=== PATIENT | male | born 1980 | race Caucasian/White ===

== ENCOUNTER 2016-12-05 22:04 | Emergency (ER) | payer MEDICAID ==
[2016-12-05 22:12] VITALS: BP 135/90; TEMP 98.8; O2SAT 94
--- NOTE | 2016-12-05 22:17 | EDPHY ---
H & P Stated Complaint: c/o pain in R foot after jamming toe earlier today Time Seen by Provider: 12/05/16 22:15 HPI/ROS: HPI The patient presents with right foot pain for the last 2 days. He got a new pair of shoes and has been doing a lot of jogging lately. The pain has been gradual in onset and getting progressively worse. It is moderate in severity. He noticed today that he had a bruise of his right great toenail and his 2nd toenail had fallen off. His pain is not associated with any swelling of his feet or any rash. REVIEW OF SYSTEMS Constitutional: No fever, no chills. Eyes: No discharge. ENT: No sore throat. Cardiovascular: No chest pain, no palpitations. Respiratory: No cough, no shortness of breath. Gastrointestinal: No abdominal pain, no vomiting. Genitourinary: No hematuria. Musculoskeletal: No back pain. Skin: No rashes. Neurological: No headache. PMHx: Anxiety, PTSD, bipolar disorder PHYSICAL General Appearance: Alert, no distress Eyes: Pupils equal and round no pallor or injection ENT, Mouth: Mucous membranes moist Respiratory: Breathing comfortably Neurological: A&O, moves all extremities Skin: Warm and dry, no rashes Musculoskeletal: Neck is supple non tender Extremities: Right great toenail with ecchymoses, right 2nd toe nail is missing with blister of the distal toe Psychiatric: Patient is oriented X 3, there is no agitation Source: Patient Exam Limitations: No limitations - Medical/Surgical History Hx Asthma: No Hx Chronic Respiratory Disease: No Hx Diabetes: No Hx Cardiac Disease: No Hx Renal Disease: No Hx Cirrhosis: No Hx Alcoholism: No Hx HIV/AIDS: No Hx Splenectomy or Spleen Trauma: No Other PMH: anxiety, ptsd, depression, bipolar - Social History Smoking Status: Former smoker Constitutional: Initial Vital Signs Temperature (C) 37.1 C 12/05/16 22:08 Heart Rate 119 H 12/05/16 22:08 Respiratory Rate 16 12/05/16 22:08 Blood Pressure 135/90 H 12/05/16 22:08 O2 Sat (%) 94 12/05/16 22:08 O2 Delivery Mode Room Air Allergies/Adverse Reactions: Penicillins Allergy (Verified 12/05/16 22:12) Home Medications: Medication Instructions Recorded Neurontin 12/05/16 Seroquel 12/05/16 Wellbutrin Sr 12/05/16 Medical Decision Making Differential Diagnosis: This is a 35-year-old man who presents with foot pain after running with new shoes on for the last several days. He appears to have a toenail ecchymoses of his great toe and has lost the toenail of his 2nd toe. There is no subungual hematoma. There is no sign of infection. Have instructed him to find new shoes that are better fitting. He can use antibiotic ointment as needed on his toe. - Data Points Medications Given: Discontinued Medications Acetaminophen (Tylenol) 1,000 mg PO EDNOW ONE Stop: 12/05/16 22:37 Last Admin: 12/05/16 22:52 Dose: 1,000 mg Departure - Departure Disposition: Home, Routine, Self-Care Clinical Impression: Toenail bruise Condition: Good Instructions: Nail Avulsion (ED), Nail Removal (ED) Additional Instructions: Please look for a pair of shoes that are bigger. Your current shoes are hurting her toes. Make sure to wear clean socks and change them daily. You can soak your feet in warm soapy water if you need to. You can also use antibiotic ointment on your toe with the toenail that has fallen off. Referrals: [facility] [Outside] - As per Instructions
[2016-12-05] MEDS ORDERED: ACETAMINOPHEN 500 MG TAB PO ONE (22:36)
[2016-12-05 22:56] VITALS: PULSE 102; RESP 18
== END 2016-12-05 22:53 | disposition home or self-care (01) ==
DX: M79.81 Nontraumatic hematoma of soft tissue (principal); Z87.891 Personal history of nicotine dependence

== ENCOUNTER → 2017-01-08 | Outpatient (CLI) | payer MEDICAID | LOC: FLAB 09:07 | PROVIDERS: ATTEND Family Medicine | DX: Z11.1 Encounter for screening for respiratory tuberculosis (principal) ==

== ENCOUNTER 2017-03-01 09:39 | Emergency (ER) | payer MEDICAID ==
[2017-03-01 09:43] VITALS: BP 112/76; PULSE 75; RESP 16; TEMP 98.1; O2SAT 98
--- NOTE | 2017-03-01 10:16 | EDPHY ---
H & P Stated Complaint: R toe pain after he dropped vase on it yesterday;ambulatory HPI/ROS: CHIEF COMPLAINT: Toe pain, crush injury HISTORY OF PRESENT ILLNESS: Patient complains of right great toe pain that started yesterday. This started when he accidentally dropped vase on his toe at work. He said it was immediately painful but he attempted to work through the pain. Worse with any kind of palpation or movement. Radiates into the foot. There is swelling and bruising. No numbness or tingling. No laceration. No improvement of his symptoms overnight. No other associated complaints or modifying factors. PRIOR ORTHO INJURIES: None ESTABLISHED ORTHOPEDIST: None REVIEW OF SYSTEMS: Ten systems reviewed and are negative unless otherwise noted in the HPI EXAMINATION General Appearance: Alert, no distress Cardiovascular: Pulses normal throughout. Symmetric DP and PT pulses 2+ Brisk cap refill Neurological: A&O, sensory symmetric, strength symmetric Skin: Warm and dry, no rash. There is ecchymosis of the entire great toe with a subungual hematoma. Extremities: Tenderness of the right great toe. No tenderness of the midfoot or calcaneus. Range of motion intact. There is ecchymosis and sub ungual hematoma of the right great toe. Psychiatric: Mood and affect normal DIFFERENTIAL DIAGNOSES: Including but not limited to fracture, crush injury, contusion, subungual hematoma MDM: 10:00 a.m. Crush injury to right great toe with possible fracture of the phalanx as well as a subungual hematoma. Proceed with trephination of the toenail. 10:15 a.m. Tuft fracture of the right great toe. This is a closed fracture. He is neurovascular intact. I have trephinated the nail with excellent improvement of his symptoms. Discharged home with postop shoe, anti-inflammatories over-the- counter, short course of pain medication. Follow up with textile conservator a Orthopedics for definitive care. He is comfortable with this plan and discharged home stable condition. Procedure: Nail trephination Indication: Right great toe subungual hematoma Consent: Verbal Description: The nail the right great toe was prepped with chlorhexidine. The electric cautery was used to trephinated the nail without complication. There was excellent return of hematoma and serous fluid. Tolerated well without any pain. Patient elected to do this without any anesthesia. Immediate improvement in his symptoms post trephination. No complications. ED Precautions: Worsening pain. Erythema, edema, cyanosis, pallor, paresthesia or anesthesia. SUPERVISION: This patient was independently evaluated without direct examination by the attending physician. Case was discussed with attending physician. Source: Patient Exam Limitations: No limitations - Personal History Current Tetanus Diphtheria and Acellular Pertussis (TDAP): Yes - Medical/Surgical History Hx Asthma: No Hx Chronic Respiratory Disease: No Hx Diabetes: No Hx Cardiac Disease: No Hx Renal Disease: No Hx Cirrhosis: No Hx Alcoholism: No Hx HIV/AIDS: No Hx Splenectomy or Spleen Trauma: No Other PMH: anxiety, ptsd, depression, bipolar - Social History Smoking Status: Current every day smoker Constitutional: Initial Vital Signs Temperature (C) 98.1 F 03/01/17 09:40 Heart Rate 75 03/01/17 09:40 Respiratory Rate 16 03/01/17 09:40 Blood Pressure 112/76 03/01/17 09:40 O2 Sat (%) 98 03/01/17 09:40 O2 Delivery Mode Room Air Allergies/Adverse Reactions: Penicillins Allergy (Unknown, Verified 03/01/17 09:39) Home Medications: Medication Instructions Recorded Neurontin 12/05/16 Seroquel 12/05/16 Wellbutrin Sr 12/05/16 Hydrocodone/APAP 5/325 [[place] 1 - 2 tab PO Q4H PRN #10 tab 03/01/17 5/325 (*)] Medical Decision Making - Diagnostics Imaging Results: Imaging Impressions Toe X-Ray 03/01/17 09:43 Impression: Tuft fracture. Departure - Departure Disposition: Home, Routine, Self-Care Clinical Impression: Toe fracture, right Qualifiers: Encounter type: initial encounter Toe: great toe Fracture type: closed Phalanx : distal Fracture alignment: nondisplaced Qualified Code(s): S92.424A - Nondisplaced fracture of distal phalanx of right great toe, initial encounter for closed fracture Subungual hematoma of great toe of right foot Qualifiers: Encounter type: initial encounter Qualified Code(s): S90.211A - Contusion of right great toe with damage to nail, initial encounter Condition: Good Instructions: Subungual Hematoma (ED), Toe Fracture (ED) Additional Instructions: 1. Ice and elevate the extremity 2. Hvea-[id number]-[id number] anti-inflammatories as needed 3. Pain medication as needed as prescribed 4. Follow up with textile conservator or Orthopedics for definitive care Referrals: NONE *PRIMARY CARE P,. [Primary Care Provider] - As per Instructions Samy Rhodes MD [Medical Doctor] - As per Instructions Jamey Craft DPM [Doctor of Podiatric Medicine] - As per Instructions Stand Alone Forms: Work Comp Follow Up Prescriptions: Hydrocodone/APAP 5/325 [[place] 5/325 (*)] 1 - 2 tab PO Q4H PRN #10 tab PRN Reason: Pain, Moderate
== END 2017-03-01 10:42 | disposition home or self-care (01) ==
PROC: 0H9RXZZ Drainage of Toe Nail, External Approach (ICD-10-PCS; principal; 2017-03-01)
DX: S92.424A Nondisplaced fracture of distal phalanx of right great toe, initial encounter for closed fracture (principal); S90.211A Contusion of right great toe with damage to nail, initial encounter; F17.200 Nicotine dependence, unspecified, uncomplicated; W20.8XXA Other cause of strike by thrown, projected or falling object, initial encounter; Y92.69 Other specified industrial and construction area as the place of occurrence of the external cause; Y99.0 Civilian activity done for income or pay; Y93.89 Activity, other specified
CPT/HCPCS: L3260

== ENCOUNTER 2017-07-12 19:09 | Emergency (ER) | payer MEDICAID ==
--- NOTE | 2017-07-12 19:24 | EDPHY ---
H & P Stated Complaint: LSD 1 hour [employer]ING [employer], found by ems yelling at customers at grocery store Source: Patient Exam Limitations: No limitations - Personal History Current Tetanus/Diphtheria Vaccine: Unsure - Medical/Surgical History Hx Asthma: No Hx Chronic Respiratory Disease: No Hx Diabetes: No Hx Cardiac Disease: No Hx Renal Disease: No Hx Cirrhosis: No Hx Alcoholism: No Hx HIV/AIDS: No Hx Splenectomy or Spleen Trauma: No Other PMH: anxiety, ptsd, depression, bipolar - Social History Smoking Status: Current every day smoker Time Seen by Provider: 07/12/17 19:19 HPI/ROS: CHIEF COMPLAINT: Altered mental status after taking acid HISTORY OF PRESENT ILLNESS: The patient is brought in by paramedics with altered mental status after taking acid. The patient reportedly was found in a grocery store yelling and customers. The patient reports he took acid for the first time today. He denies coingestion. The patient denies suicidal ideation. The patient does have a history of PTSD, anxiety, depression and bipolar mood disorder. The patient reports he takes Seroquel, Wellbutrin and Neurontin for these conditions. REVIEW OF SYSTEMS: A comprehensive 10 point review of systems is otherwise negative aside from elements mentioned in the history of present illness. (Tru Franklin) - Physical Exam Exam: General Appearance: Alert, agitated, actively hallucinating Eyes: Pupils equal and round no pallor or injection ENT, Mouth: Mucous membranes moist Respiratory: There are no retractions, lungs are clear to auscultation Cardiovascular: Regular rate and rhythm Gastrointestinal: Abdomen is soft and nontender, no masses, bowel sounds normal Neurological: A&O, normal motor function, normal sensory exam, normal cranial nerves Skin: Warm and dry, no rashes Musculoskeletal: Neck is supple nontender Extremities: symmetrical, full range of motion Psychiatric: Agitated and hallucinating from using hallucinogen (Tru Franklin) Constitutional: Initial Vital Signs Temperature (C) 36.9 C 07/12/17 19:12 Heart Rate 90 07/12/17 19:12 Respiratory Rate 16 07/12/17 19:12 Blood Pressure 127/85 H 07/12/17 19:12 O2 Sat (%) 100 07/12/17 19:12 O2 Delivery Mode Room Air Allergies/Adverse Reactions: Penicillins Allergy (Unknown, Verified 03/01/17 09:39) Home Medications: Medication Instructions Recorded Neurontin 12/05/16 Seroquel 12/05/16 Wellbutrin Sr 12/05/16 Hydrocodone/APAP 325 [[place] 1 - 2 tab PO Q4H PRN #10 tab 03/01/17 5/325 (*)] Medical Decision Making ED Course/Re-evaluation: The patient presents to the ED with altered mental status and hallucinations after taking LSD. The patient was given 10 mg of oral Zyprexa at 7:40 p.m.. Patient was re-evaluated at 8:00 p.m.. He is feeling more common less agitated. He is now resting comfortably in the room. Patient will be turned over to Dr. Mandel at 8:30 p.m. pending further metabolism of his LSD. I anticipate the patient he will be able to be discharged from the emergency department. (Tru Franklin) 830: Patient is signed out at change of shift. The patient is doing well with no complaints. 940: The patient is doing well. No complaints. 1000: Patient is stable. The patient is signed out to Dr. Zhou at change of shift. (Jerica Mandel) 6:00 a.m.- The patient remained stable throughout the night and slept for most of it. He will be discharged at this time. He does not have any complaints. (Citlali Zhou) Differential Diagnosis: Differential diagnosis considered includes overdose, intoxication, medication side effect, serotonin syndrome (Tru Franklin) - Data Points Medications Given: Discontinued Medications Olanzapine (Olanzapine) 10 mg PO ONCE ONE Stop: 07/12/17 19:34 Last Admin: 07/12/17 19:35 Dose: 10 mg Departure - Departure Disposition: Home, Routine, Self-Care Clinical Impression: LSD reaction Condition: Good Instructions: Polysubstance Abuse (ED) Additional Instructions: Please return to the emergency department if your worse in any way. Referrals: [facility],. [Clinic] - As per Instructions
[2017-07-12] MEDS ORDERED: OLANZapine DISINTEGR 10 MG TAB ONE (19:31)
[2017-07-12] MEDS ORDERED: OLANZapine 5 MG TAB PO ONE (19:33)
[2017-07-13 06:16] VITALS: BP 110/71; PULSE 73; RESP 16; TEMP 98.1; O2SAT 97
== END 2017-07-13 06:16 | disposition home or self-care (01) ==
LOC: EDUNIT#
DX: F16.10 Hallucinogen abuse, uncomplicated (principal); F17.200 Nicotine dependence, unspecified, uncomplicated

== ENCOUNTER 2017-07-27 22:57 | Emergency (ER) | payer MEDICAID ==
[2017-07-27 23:01] VITALS: TEMP 97.9
[2017-07-27] MEDS ORDERED: NS 1,000 ML IV ONE ×2 (23:08)
--- NOTE | 2017-07-27 23:08 | EDPHY ---
H & P Stated Complaint: Diarrhea since last night HPI/ROS: HPI CHIEF COMPLAINT: Diarrhea HISTORY OF PRESENT ILLNESS: Patient very pleasant 36-year-old male, homeless staying at a local senior care he states for the past 24 hr he has had watery diarrhea. No blood. Denies any significant abdominal pain. Denies fever. Denies vomiting. Denies chest pain or shortness of breath. Does feel dehydrated. Past Medical History: No significant medical history Past Surgical History: No significant surgical history Social History: Homeless, denies drugs alcohol tobacco. Family History: Noncontributory ROS REVIEW OF SYSTEMS: A comprehensive 10 point review of systems is otherwise negative aside from elements mentioned in the history of present illness. Exam Constitutional appears well nontoxic triage nursing summary reviewed, vital signs reviewed, awake/alert. Eyes normal conjunctivae and sclera, EOMI, PERRLA. HENT normal inspection, atraumatic, moist mucus membranes, no epistaxis, neck supple/ no meningismus, no raccoon eyes. Respiratory clear to auscultation bilaterally, normal breath sounds, no respiratory distress, no wheezing. Cardiovascular rate normal, regular rhythm, no murmur, no edema, distal pulses normal. Gastrointestinal soft, non-tender, no rebound, no guarding, normal bowel sounds, no distension, no pulsatile mass. Genitourinary no CVA tenderness. Musculoskeletal no midline vertebral tenderness, full range of motion, no calf swelling, no tenderness of extremities, no meningismus, good pulses, neurovascularly intact. Skin pink, warm, & dry, no rash, skin atraumatic. Neurologic awake, alert and oriented x 3, AAOx3, moves all 4 extremities equally, motor intact, sensory intact, CN II-XII intact, normal cerebellar, normal vision, normal speech. Psychiatric normal mood/affect. Heme/Lymph/Immune no lymphadenopathy. Differential Diagnosis: Includes but is not limited to in a particular order acute dehydration, diarrheal illness, electrolyte disturbance, Noro virus, enteritis Medical Decision Making: Plan for this patient IV establishment IV fluid bolus , check basic blood work, GI pathogen panel and re-evaluate. Re-evaluation: 235: Patient's blood work is reviewed. Unremarkable normal electrolytes. No high white count. Abdomen remained soft nontender. He has not had any diarrhea here or vomiting. He has received IV fluid and feeling better. Return precautions discussed with the patient. He understands return emergency room if develops worsening abdominal pain fever or vomiting. Source: Patient - Personal History Current Tetanus/Diphtheria Vaccine: Yes Current Tetanus Diphtheria and Acellular Pertussis (TDAP): Yes - Medical/Surgical History Hx Asthma: No Hx Chronic Respiratory Disease: No Hx Diabetes: No Hx Cardiac Disease: No Hx Renal Disease: No Hx Cirrhosis: No Hx Alcoholism: No Hx HIV/AIDS: No Hx Splenectomy or Spleen Trauma: No Other PMH: anxiety, ptsd, depression, bipolar - Social History Smoking Status: Current every day smoker Constitutional: Initial Vital Signs Temperature (C) 36.6 C 07/27/17 22:59 Heart Rate 88 07/27/17 22:59 Respiratory Rate 16 07/27/17 22:59 Blood Pressure 133/86 H 07/27/17 22:59 O2 Sat (%) 95 07/27/17 22:59 O2 Delivery Mode Room Air Allergies/Adverse Reactions: Penicillins Allergy (Unknown, Verified 07/27/17 23:01) Home Medications: Medication Instructions Recorded Neurontin 12/05/16 Seroquel 12/05/16 Medical Decision Making - Data Points Laboratory Results: Laboratory Results 07/27/17 23:30 07/27/17 23:30 07/27/17 07/27/17 23:30 23:30 WBC 8.70 10^3/uL 10^3/uL (3.80-9.50) RBC 4.85 10^6/uL 10^6/uL (4.40-6.38) Hgb 15.3 g/dL g/dL (13.7-17.5) Hct 44.5 % % (40.0-51.0) MCV 91.8 fL fL (81.5-99.8) MCH 31.5 pg pg (27.9-34.1) MCHC 34.4 g/dL g/dL (32.4-36.7) RDW 12.5 % % (11.5-15.2) Plt Count 301 10^3/uL 10^3/uL (150-400) MPV 9.4 fL fL (8.7-11.7) Neut % (Auto) 64.1 % % (39.3-74.2) Lymph % (Auto) 26.2 % % (15.0-45.0) [place] % (Auto) 7.9 % % (4.5-13.0) Eos % (Auto) 1.1 % % (0.6-7.6) Baso % (Auto) 0.5 % % (0.3-1.7) Nucleat RBC Rel Count 0.0 % % (0.0-0.2) Absolute Neuts (auto) 5.57 10^3/uL 10^3/uL (1.70-6.50) Absolute Lymphs (auto) 2.28 10^3/uL 10^3/uL (1.00-3.00) Absolute Monos (auto) 0.69 10^3/uL 10^3/uL (0.30-0.80) Absolute Eos (auto) 0.10 10^3/uL 10^3/uL (0.03-0.40) Absolute Basos (auto) 0.04 10^3/uL 10^3/uL (0.02-0.10) Absolute Nucleated RBC 0.00 10^3/uL 10^3/uL (0-0.01) Immature Gran % 0.2 % % (0.0-1.1) Immature Gran # 0.02 10^3/uL 10^3/uL (0.00-0.10) Sodium 143 mEq/L mEq/L (134-144) Potassium 4.0 mEq/L mEq/L (3.5-5.2) Chloride 105 mEq/L mEq/L (97-110) Carbon Dioxide 23 mEq/l mEq/l (22-31) Anion Gap 15 mEq/L mEq/L (8-16) BUN 15 mg/dL mg/dL (7-23) Creatinine 0.9 mg/dL mg/dL (0.7-1.3) Estimated GFR > 60 Glucose 86 mg/dL mg/dL (70-100) Calcium 9.7 mg/dL mg/dL (8.5-10.4) Total Bilirubin 0.9 mg/dL mg/dL (0.1-1.4) Conjugated Bilirubin 0.3 mg/dL mg/dL (0.0-0.5) Unconjugated Bilirubin 0.6 mg/dL mg/dL (0.0-1.1) AST 24 IU/L IU/L (17-59) ALT 44 IU/L IU/L (21-72) Alkaline Phosphatase 111 IU/L IU/L (38-126) Total Protein 7.5 g/dL g/dL (6.3-8.2) Albumin 4.5 g/dL g/dL (3.5-5.0) Lipase 158 IU/L IU/L (23-300) Medications Given: Discontinued Medications Sodium Chloride (Ns) 1,000 mls @ 0 mls/hr IV EDNOW ONE; Wide Open PRN Reason: Protocol Stop: 07/27/17 23:09 Last Admin: 07/27/17 23:37 Dose: 1,000 mls Sodium Chloride (Ns) 1,000 mls @ 0 mls/hr IV EDNOW ONE; Wide Open PRN Reason: Protocol Stop: 07/27/17 23:09 Last Admin: 07/27/17 23:38 Dose: 1,000 mls Departure - Departure Disposition: Home, Routine, Self-Care Clinical Impression: Diarrhea Qualifiers: Diarrhea type: unspecified type Qualified Code(s): R19.7 - Diarrhea, unspecified Condition: Good Instructions: Acute Diarrhea (ED) Additional Instructions: 1. [place] diet for next 24-48 hours. 2. Return emergency room if develops worsening symptoms questions or concerns for Referrals: NONE *PRIMARY CARE P,. [Primary Care Provider] - As per Instructions
[2017-07-27 23:34] LABS: PLATELET COUNT 301 10^3/uL (150-400)
[2017-07-28 00:14] VITALS: BP 133/92; PULSE 85; RESP 18; O2SAT 99
== END 2017-07-28 00:14 | disposition home or self-care (01) ==
DX: R19.7 Diarrhea, unspecified (principal); F17.200 Nicotine dependence, unspecified, uncomplicated; E86.9 Volume depletion, unspecified

== ENCOUNTER 2017-09-02 14:27 | Emergency (ER) | payer MEDICAID ==
[2017-09-02 14:36] VITALS: BP 114/74; PULSE 83; RESP 16; TEMP 98.6; O2SAT 97
--- NOTE | 2017-09-02 14:43 | EDPHY ---
H & P Stated Complaint: congestion, n/v/d Time Seen by Provider: 09/02/17 14:42 HPI/ROS: HPI: This is a 36-year-old male who presents with Chief Complaint: congestion, n/v/d Location: Chest, sinus Quality: Congestion Duration: 2 weeks Signs and Symptoms: no fever, + nausea, + vomiting, no hematemesis, no blood in stool, no abdominal bloating, + diarrhea, no back pain, no urinary symptoms, no testicular/groin pain, no indigestion, no chest pain, no shortness of breath Timing: Improving Severity: Mild Context: Patient has no PCP presents with complaints of 2 weeks ago having some nausea, vomiting, diarrhea x3 days that resolved on its own. Now presents with sinus and chest congestion for the last 12 days. Patient is a tobacco user. History of lung disease. Denies shortness of breath/wheezing/fever/ palpitation/chest pain/lower extremity edema. Eating and drinking normally. Modifying Factors: None Comment: ROS: see HPI Constitutional: No fever, no chills, no weight loss Eyes: No blurred vision Respiratory: No shortness of breath, no cough Cardiovascular: No chest pain, no palpitations Gastrointestinal: No nausea, no vomiting, no diarrhea, no hematemesis, no blood in stool Genitourinary: No dysuria, no blood in urine Extremities: No myalgias, no edema Neurologic: No weakness, no numbness Skin: No rashes, no petechiae Hematologic: No bruising, no bleeding MEDICAL/SURGICAL/SOCIAL HISTORY: Medical history: anxiety, PTSD, depression, bipolar Surgical history: Denies Social history: Engaged CONSTITUTIONAL: Well-appearing, adult white male, awake and alert, no obvious distress HEENT: Atraumatic and normocephalic, PERRL, EOMI. Tympanic membranes clear. Nares patent with mild mucosal edema; green nasal discharge noted. Mild maxillary bilateral sinus tenderness. Oropharynx clear, no exudate and moist pink mucosa. Airway patent. No lymphadenopathy. No meningismus. Cardiovascular: Normal S1/S2, regular rate, regular rhythm, without murmur rub or gallop. PULMONARY/CHEST: Symmetrical and nontender. Clear to auscultation bilaterally. Good air movement. No accessory muscle usage. ABDOMEN: Soft, nondistended, nontender, no rebound, no guarding, no peritoneal signs, no masses or organomegaly. No CVAT. EXTREMITIES: 2/2 pulses, strength 5/5, no deformities, no clubbing, no cyanosis or edema. NEUROLOGICAL: no focal neuro deficits. GCS 15. SKIN: Warm and dry, no erythema. Tattoos covering entire torso and upper and lower extremities. no rash. Good capillary refill. Source: Patient, Family (fiance) Exam Limitations: No limitations - Personal History Current Tetanus/Diphtheria Vaccine: Unsure Current Tetanus Diphtheria and Acellular Pertussis (TDAP): Unsure - Medical/Surgical History Hx Asthma: No Hx Chronic Respiratory Disease: No Hx Diabetes: No Hx Cardiac Disease: No Hx Renal Disease: No Hx Cirrhosis: No Hx Alcoholism: No Hx HIV/AIDS: No Hx Splenectomy or Spleen Trauma: No Other PMH: anxiety, ptsd, depression, bipolar - Social History Smoking Status: Current every day smoker Constitutional: Initial Vital Signs Temperature (C) 37 C 09/02/17 14:34 Heart Rate 83 09/02/17 14:34 Respiratory Rate 16 09/02/17 14:34 Blood Pressure 114/74 09/02/17 14:34 O2 Sat (%) 97 09/02/17 14:34 O2 Delivery Mode Room Air Allergies/Adverse Reactions: Penicillins Allergy (Unknown, Verified 07/27/17 23:01) Home Medications: Medication Instructions Recorded AZITHROMYCIN [Z-PACK] 250 mg PO DAILY #6 tab 09/02/17 Benzonatate [Tessalon Pearles (RX)] 100 mg PO Q4 PRN #15 cap 09/02/17 Medical Decision Making ED Course/Re-evaluation: Vital signs reviewed and no systemic signs. Symptoms greater than 10 days and tobacco user with no lung disease Will treat with antibiotics and antitussives. Did not give albuterol inhaler as no wheezing/bronchospasm. Not a Tamiflu candidate so will not test. This patient was seen under the supervision of my secondary supervising physician. I evaluated care for this patient independently. Differential Diagnosis: Differential diagnosis includes but is not limited to sinusitis, bronchitis, upper respiratory infection, pneumonia. Departure - Departure Disposition: Home, Routine, Self-Care Clinical Impression: Bronchitis, Tobacco use disorder Sinusitis Qualifiers: Sinusitis location: maxillary Chronicity: acute Recurrence: non-recurrent Qualified Code(s): J01.00 - Acute maxillary sinusitis, unspecified Condition: Good Instructions: Acute Bronchitis (ED) Additional Instructions: Please refrain from smoking cigarettes and entertain the thought to quit altogether. Consume a minimum of 8-10 glasses of water or electrolyte fluid replacement drinks that include Gatorade, Powerade, Pedialyte. Take [id number] Mucinex every 6 hours as needed for congestion. Take Azithromycin x 5 days as directed. Use Tessalon Perles every 4 hr as needed for cough. This patient was seen under the supervision of my secondary supervising physician. I evaluated care for this patient independently. Referrals: [facility],. [Clinic] - As per Instructions Prescriptions: AZITHROMYCIN [Z-PACK] 250 mg PO DAILY #6 tab Benzonatate [Tessalon Pearles (RX)] 100 mg PO Q4 PRN #15 cap PRN Reason: Cough, Moderate
== END 2017-09-02 15:04 | disposition home or self-care (01) ==
DX: J20.9 Acute bronchitis, unspecified (principal); J01.00 Acute maxillary sinusitis, unspecified; F17.200 Nicotine dependence, unspecified, uncomplicated

== ENCOUNTER 2017-10-20 13:38 | Emergency (ER) | payer MEDICAID ==
--- NOTE | 2017-10-20 13:40 | EDPHY ---
H & P Time Seen by Provider: 10/20/17 13:40 - Medical/Surgical History Hx Asthma: No Hx Chronic Respiratory Disease: No Hx Diabetes: No Hx Cardiac Disease: No Hx Renal Disease: No Hx Cirrhosis: No Hx Alcoholism: No Hx HIV/AIDS: No Hx Splenectomy or Spleen Trauma: No Other PMH: anxiety, ptsd, depression, bipolar - Social History Smoking Status: Current every day smoker Allergies/Adverse Reactions: Penicillins Allergy (Unknown, Verified 07/27/17 23:01) Home Medications: Medication Instructions Recorded AZITHROMYCIN [Z-PACK] 250 mg PO DAILY #6 tab 09/02/17 Benzonatate [Tessalon Pearles (RX)] 100 mg PO Q4 PRN #15 cap 09/02/17 Medical Decision Making ED Course/Re-evaluation: CHIEF COMPLAINT: Alcohol intoxication. HISTORY OF PRESENT ILLNESS: The patient is a chronic alcoholic living on the [address]. Patient drinks on a daily basis and obtains whatever alcohol is available. Patient was found by bystanders who called EMS system. Patient has had multiple ER visits over the last several years for the same complaint. Patient denies any injuries denies loss of consciousness denies any recent trauma. Patient denies co-ingestion. Patient denies suicidal or homicidal behavior. REVIEW OF SYSTEMS: A 10 point review of systems was performed and is negative with the exception of the elements mentioned in the history of present illness. PHYSICAL EXAM: General Appearance: Alert, well hydrated, appropriate, and non-toxic appearing. Head: Atraumatic without scalp tenderness or obvious injury Eyes: Pupils equal, round, reactive to light and accommodation, EOMI, no trauma , no injection. Ears: Clear bilaterally, no perforation, normal landmarks Nose: Atraumatic, no rhinorrhea, clear. Throat: There is no erythema or exudates, no lesions, normal tonsils, mucus membranes moist. Neck: Supple, 2+ carotid upstroke, nontender, no lymphadenopathy. Respiratory: No retractions, no distress, no wheezes, and no accessory muscle use. Lungs are clear to auscultation bilaterally. Cardiovascular: Regular rate and rhythm, no murmurs, rubs, or gallops. Bilateral carotid, radial, dorsalis pedis, and posterior tibial pulses intact. Good capillary refill all extremities. Gastrointestinal: Abdomen is soft, nontender, non-distended, no masses, no rebound, no guarding, no peritoneal signs. Musculoskeletal: Normal active ROM of all extremities, atraumatic. Neurological: Alert, appropriate, and interactive. The patient has normal DTRs and non-focal cranial nerves, motor, sensory, and cerebellar exam. Skin: No rashes, good turgor, no nodules on palpation. PAST MEDICAL HISTORY: Chronic alcohol and marijuana abuse PAST SURGICAL HISTORY: Noncontributory SOCIAL HISTORY: Patient not forthright with answering questions. He obviously drinks and smokes marijuana, unclear if he has a job or significant other. DIFFERENTIAL DIAGNOSIS: The differential diagnosis for the patient's altered mental status included but was not limited to hypoglycemia, infectious process, electrolyte abnormality, head injury, neurologic process, anemia, cardiac process, and intoxicants. MEDICAL DECISION MAKING: I serially examined this patient since the patient's arrival here in the emergency department. The patient continues to become more and more sober with each examination. I serially questioned the patient and the patient's story given initially has not changed. The patient still denies any trauma, any head injury, and any illicit drug use. At this point, the patient is walking the department freely and is clinically sober. We're discharging the patient to the [facility] in stable condition. Departure - Departure Disposition: Home, Routine, Self-Care Clinical Impression: Polysubstance abuse Alcoholic intoxication Qualifiers: Complication of substance-induced condition: uncomplicated Qualified Code(s): F10.920 - Alcohol use, unspecified with intoxication, uncomplicated Condition: Good Instructions: Abuse of Alcohol (ED) Referrals: Patient,NotPresent [Primary Care Provider] - As per Instructions
[2017-10-20 15:25] VITALS: BP 111/63; PULSE 92; RESP 16; TEMP 97.9; O2SAT 94
== END 2017-10-20 15:04 | disposition home or self-care (01) ==
LOC: EDUNIT#
DX: F10.920 Alcohol use, unspecified with intoxication, uncomplicated (principal); F19.10 Other psychoactive substance abuse, uncomplicated; F17.200 Nicotine dependence, unspecified, uncomplicated

== ENCOUNTER 2017-10-23 22:32 | Emergency (ER) | payer MEDICAID ==
--- NOTE | 2017-10-24 00:11 | EDPHY ---
H & P Stated Complaint: fall, head laceration Time Seen by Provider: 10/23/17 22:45 HPI/ROS: Chief complaint: Fall with head injury History of present illness: This is a 36-year-old male who presents to the emergency department reporting a fall with a head injury. He states he tripped over a rock and struck the top of his head. He was drinking at that time. However he states he is now sober. He reports a cut to the top of his head. He did not lose consciousness. He has a mild headache. He denies pain or trauma to other parts of the body including the neck, back, chest, abdomen, pelvis or extremities. No other neurologic symptoms such as paresthesias, weakness or paralysis or bowel or bladder dysfunction. His tetanus is up-to- date. Review of systems: A 10 point review of systems was obtained and other than described above was negative - Personal History Current Tetanus/Diphtheria Vaccine: Yes Current Tetanus Diphtheria and Acellular Pertussis (TDAP): Yes - Medical/Surgical History Hx Asthma: No Hx Chronic Respiratory Disease: No Hx Diabetes: No Hx Cardiac Disease: No Hx Renal Disease: No Hx Cirrhosis: No Hx Alcoholism: No Hx HIV/AIDS: No Hx Splenectomy or Spleen Trauma: No Other PMH: anxiety, ptsd, depression, bipolar - Social History Smoking Status: Current every day smoker - Physical Exam Exam: General Appearance: Alert, nontoxic, easily conversant Eyes: PERRLA. Respiratory: Lungs clear to auscultation bilaterally. Cardiac: Regular rate and rhythm. Gastrointestinal: Bowel sounds normal. Abdomen is soft, nondistended, nontender. Neurological: Alert and oriented x4. Cranial nerves 2-12 grossly intact. Strength and sensation intact and symmetrical. Skin: 1 cm laceration to the superior aspect of the scalp. Musculoskeletal: Head is nontender. The spine is nontender. Chest wall is intact palpation. Patient moving all extremities without difficulty. Constitutional: Initial Vital Signs Temperature (C) 36.9 C 10/23/17 22:38 Heart Rate 89 10/23/17 22:38 Respiratory Rate 16 10/23/17 22:38 Blood Pressure 112/65 10/23/17 22:38 O2 Sat (%) 96 10/23/17 22:38 O2 Delivery Mode Room Air Allergies/Adverse Reactions: Penicillins Allergy (Unknown, Verified 07/27/17 23:01) Home Medications: Medication Instructions Recorded AZITHROMYCIN [Z-PACK] 250 mg PO DAILY #6 tab 09/02/17 Benzonatate [Tessalon Pearles (RX)] 100 mg PO Q4 PRN #15 cap 09/02/17 Medical Decision Making - Diagnostics Imaging Results: Imaging Impressions Cervical Spine CT 10/23/17 23:01 Impression: 1. No definite fracture. 2. If there is persistent pain or neurological deficit, recommend MR cervical spine and consider flexion and extension views, if clinically indicated. Findings and recommendations discussed with Emergency Department physician, VIKTOR Tian at 23:34 hour, 10/23/2017. Final report concurs with initial preliminary interpretation. Head CT 10/23/17 23:01 Impression: 1. Normal CT brain without contrast. 2. No evidence of skull fracture or epidural/subdural hematoma. Findings and recommendations discussed with Emergency Department physician, VIKTOR Tian at 23:33 hour, 10/23/2017. Final report concurs with initial preliminary interpretation. Imaging: Discussed imaging studies w/ orthopedically impaired teacher Radiologist ED Course/Re-evaluation: Patient seen under the supervision of my secondary supervising physician Dr. Ho Odom. Patient presents to the emergency department after tripping and falling and injuring his head. He has been intoxicated. CT scans are negative. By history and physical exam no evidence of further trauma. Laceration was cleaned and repaired. At discharge he is clinically sober. Home care is discussed. He is asked to follow up with a primary care doctor for recheck. Return precautions are given. Differential Diagnosis: Included but not limited to soft tissue injury, bony injury, concussion, intracranial bleed, spinal cord injury Departure - Departure Disposition: Home, Routine, Self-Care Clinical Impression: Head injury Qualifiers: Encounter type: initial encounter Qualified Code(s): S09.90XA - Unspecified injury of head, initial encounter Scalp laceration Qualifiers: Encounter type: initial encounter Qualified Code(s): S01.01XA - Laceration without foreign body of scalp, initial encounter Condition: Good Instructions: Laceration (ED), Head Injury (ED), Staple Care (ED) Additional Instructions: Follow-up with a primary care doctor for recheck [place] are to be removed in 7 days, you can return to this emergency room for removal If symptoms worsen or new symptoms develop return to the emergency room for recheck Referrals: NONE *PRIMARY CARE P,. [Primary Care Provider] - As per Instructions [facility],. [Clinic] - As per Instructions
[2017-10-24 00:28] VITALS: BP 128/70
== END 2017-10-24 00:27 | disposition home or self-care (01) ==
PROC: 0HQ0XZZ Repair Scalp Skin, External Approach (ICD-10-PCS; principal; 2017-10-23)
DX: S01.01XA Laceration without foreign body of scalp, initial encounter (principal); F17.200 Nicotine dependence, unspecified, uncomplicated; W01.198A Fall on same level from slipping, tripping and stumbling with subsequent striking against other object, initial encounter

== ENCOUNTER 2018-06-21 20:09 | Emergency (ER) | payer MEDICAID ==
[2018-06-21] MEDS ORDERED: FAMOTIDINE 20 MG/NACL 50 ML IV ONE (20:17)
[2018-06-21] MEDS ORDERED: ONDANSETRON 4 MG/2 ML VIAL IVP ONE (20:17)
[2018-06-21] MEDS ORDERED: NS 1,000 ML IV ONE (20:17)
[2018-06-21 20:26] LABS: PLATELET COUNT 405 10^3/uL (150-400)
--- NOTE | 2018-06-21 20:32 | EDPHY ---
H & P Time Seen by Provider: 06/21/18 20:15 HPI/ROS: HPI Nausea vomiting and diarrhea. 37-year-old male. Homeless. History of alcohol abuse. Presents by ambulance with complaint of nausea, vomiting and diarrhea, ongoing for the last 3-4 days. He describes having associated crampy abdominal discomfort which comes on intermittently. He reports multiple episodes of watery diarrhea and nonbilious , nonbloody vomiting. No bloody or melenic stool. He was just [facility] from [facility] this morning. He is currently on the streets. ROS: Constitutional: No fever, no chills. No weakness. Eyes: No discharge. No changes in vision. ENT: No sore throat. No nasal congestion or rhinorrhea. Respiratory: No cough. No shortness of breath. Cardiac: No chest pain, no palpitations. Gastrointestinal: As above. Genitourinary: No hematuria. No dysuria or increased frequency with urination. Musculoskeletal: No back pain. No neck pain. No myalgias or arthralgias. Skin: No rashes. Neurological: No headache. No focal weakness or altered sensation. Past medical history: Anxiety, PTSD, depression, heroin abuse, alcohol abuse. Social history: As above. Smoker. Physical Exam: General Appearance: Alert, no distress. This patient is responding to questions appropriately and in full sentences. This patient appears well- hydrated and well-nourished. Eyes: Pupils equal and round no pallor or injection. No lid edema, erythema or injection. Respiratory: There are no retractions, lungs are clear to auscultation with good air movement bilaterally. Cardiovascular: Regular rate and rhythm. No murmur. Gastrointestinal: Abdomen is soft and nontender, no masses, bowel sounds normal. No focal tenderness at McBurney's point. No Zhao sign. Neurological: Motor sensory function is grossly intact. Cranial nerves are normal. Gait is normal. Skin: Warm and dry, no rashes. Musculoskeletal: Neck is supple and nontender. Extremities are symmetrical. All joints range without pain or impingement. Psychiatric: No agitation. No depression. Database: EKG: Imaging: Procedures: Emergency department course: Triage vital signs reviewed and are normal. An IV was placed per EMS. Patient was started on IV normal saline with 1-2 L to be given over the next 1-2 hours while in the emergency department. He was given 4 mg of IV Zofran and 20 mg of IV Pepcid. 9:30 p.m., the patient has had 2 L of IV normal saline. He is feeling better. He is tolerating oral fluids at this time. Repeat abdominal exam is soft, nontender nondistended. He feels comfortable being discharged. Follow-up and return to emergency department precautions reviewed with him. All of his questions were answered. He was discharged from the emergency department in good condition. Differential Diagnosis: The differential diagnosis on this patient includes but is not limited to food borne illness, viral gastroenteritis. Appendicitis, cholecystitis, bowel obstruction, other acute surgical etiology unlikely. This represents a partial list of diagnoses considered. These considerations are based on history, physical exam, past history, reassessment and diagnostic testing. Smoking Status: Current every day smoker Constitutional: Initial Vital Signs Temperature (C) 37.3 C 06/21/18 20:10 Heart Rate 80 06/21/18 20:10 Respiratory Rate 19 06/21/18 20:10 Blood Pressure 128/89 H 06/21/18 20:10 O2 Sat (%) 96 06/21/18 20:10 O2 Delivery Mode Room Air Allergies/Adverse Reactions: Penicillins Allergy (Unknown, Verified 06/21/18 20:18) Home Medications: Medication Instructions Recorded AZITHROMYCIN [Z-PACK] 250 mg PO DAILY #6 tab 09/02/17 Benzonatate [Tessalon Pearles (RX)] 100 mg PO Q4 PRN #15 cap 09/02/17 Medical Decision Making - Data Points Laboratory Results: 06/21/18 06/21/18 20:12 20:12 WBC Pending RBC Pending Hgb Pending Hct Pending MCV Pending MCH Pending MCHC Pending RDW Pending Plt Count Pending MPV Pending Neut % (Auto) Pending Lymph % (Auto) Pending Blanco % (Auto) Pending Eos % (Auto) Pending Baso % (Auto) Pending Nucleat RBC Rel Count Pending Absolute Neuts (auto) Pending Absolute Lymphs (auto) Pending Absolute Monos (auto) Pending Absolute Eos (auto) Pending Absolute Basos (auto) Pending Absolute Nucleated RBC Pending Immature Gran % Pending Immature Gran # Pending Sodium Pending Potassium Pending Chloride Pending Carbon Dioxide Pending Anion Gap Pending BUN Pending Creatinine Pending Estimated GFR Pending Glucose Pending Calcium Pending Total Bilirubin Pending Conjugated Bilirubin Pending Unconjugated Bilirubin Pending AST Pending ALT Pending Alkaline Phosphatase Pending Total Protein Pending Albumin Pending Lipase Pending Ethyl Alcohol Pending Medications Given: Famotidine/Sodium Chloride (Pepcid 20 Mg (Premix)) 50 mls @ 200 mls/hr IV EDNOW ONE Stop: 06/21/18 20:31 Last Admin: 06/21/18 20:20 Dose: 50 mls Discontinued Medications Sodium Chloride (Ns) 1,000 mls @ 0 mls/hr IV EDNOW ONE; Wide Open PRN Reason: Protocol Stop: 06/21/18 20:18 Last Admin: 06/21/18 20:21 Dose: 1,000 mls Ondansetron HCl (Zofran) 4 mg IVP EDNOW ONE Stop: 06/21/18 20:18 Last Admin: 06/21/18 20:20 Dose: 4 mg Departure - Departure Disposition: Home, Routine, Self-Care Clinical Impression: Gastroenteritis Condition: Good Instructions: Gastroenteritis (ED) Additional Instructions: Read and follow provided instructions. Follow-up with your primary care physician in 1-2 days for re-evaluation. Take medication as prescribed for nausea. Return to the emergency department for worsening symptoms, worsening abdominal pain, vomiting and inability to keep fluids down despite medication or other serious concerns. Referrals: [facility],. [Clinic] - As per Instructions
[2018-06-21] MEDS ORDERED: ONDANSETRON 4MG PREPACK#2 BTL TAKEHOME ONE (20:33)
[2018-06-21 21:41] VITALS: BP 104/68
== END 2018-06-21 21:45 | disposition home or self-care (01) ==
LOC: EDUNIT#
DX: K52.9 Noninfective gastroenteritis and colitis, unspecified (principal); E86.9 Volume depletion, unspecified
CPT/HCPCS: 96365; G0480; J2405

== ENCOUNTER 2018-10-04 23:49 | Emergency (ER) | payer MEDICAID ==
[2018-10-05 00:04] VITALS: BP 127/89
--- NOTE | 2018-10-05 00:20 | EDPHY ---
H & P Smoking Status: Current every day smoker Time Seen by Provider: 10/05/18 00:17 HPI/ROS: CHIEF COMPLAINT: "Get away from me faggot bitch" HISTORY OF PRESENT ILLNESS: 37-year-old male arrives in custody of police for medical screening prior to incarceration. Complaining of "left shoulder dislocation" and left ankle pain. He denies acute trauma. States that he rolled his ankle few days ago. This has a history of chronic left shoulder dislocation. The patient will not allow me to examine him, will not allow me to touch him. He threatens to punch me. I did observe him ambulating into his exam room from the ambulance bay with stable steady gait without assistance. He is handcuffed behind his back. PRIMARY CARE PROVIDER: REVIEW OF SYSTEMS: Review of systems limited on this patient due to his agitation and aggressive behavior toward me. PAST MEDICAL & SURGICAL HISTORY: Unknowndue to his agitation and aggressive behavior toward me] SOCIAL HISTORY:Unknown due to his agitation and aggressive behavior toward me PHYSICAL EXAM (Prior to examination, patient consented to physical exam, hands were washed and my usual and customary physical exam procedures followed) 1) GENERAL: poorly kept , observed ambulating with police, yelling, cursing, threatening staff. 2) HEAD: Normocephalic 3) HEENT: Poor dentition. 4) NECK: Full range of motion 5) LUNGS: breathing comfortably 6) HEART: no cyanotic discoloration 7) ABDOMEN: No guarding,, 8) MUSCULOSKELETAL: Left upper extremity: Patient refuses to remove his shirt. When I attempt to remove the shirt he lunges and attempts to bite me. Normal coloration. No visible signs of trauma. Left lower extremity: No visible signs of trauma. Normal coloration. When I attempt to palpate the area he lunch is attempts to bite me. 9) BACK: No visual or palpable abnormality. 10) SKIN: No rash, no petechiae. 11) Psychiatric: Patient is oriented X 3, there is no agitation. DIFFERENTIAL DIAGNOSIS: In no particular order including but not limited to fracture, sprain, strain, dislocation ([place] Clement[place]) PHYSICIAN DOCUMENTATION: The patient was evaluated and managed by the Physician Associate Professor Of Sociology. My co- signature indicates that I have reviewed this chart and I agree with the findings and plan of care as documented. I am the secondary supervising physician. (Citlali Zhou) Constitutional: Initial Vital Signs Heart Rate 96 10/04/18 23:57 Respiratory Rate 18 10/04/18 23:57 Blood Pressure 127/89 H 10/04/18 23:57 O2 Sat (%) 94 10/04/18 23:57 O2 Delivery Mode Room Air Allergies/Adverse Reactions: Penicillins Allergy (Unknown, Verified 06/21/18 20:18) Home Medications: Medication Instructions Recorded AZITHROMYCIN [Z-PACK] 250 mg PO DAILY #6 tab 09/02/17 Benzonatate [Tessalon Pearles (RX)] 100 mg PO Q4 PRN #15 cap 09/02/17 MDM/Departure - MDM Procedures: Procedure: Splint A [place] boot splint was applied by ER environmental services technician. After application of the splint I returned and re-examined the patient. The splint was adequately immobilizing the joint. Patient shows no signs of compartment syndrome. Was given orthopedic precautions. (Mac Clemente) ED Course/Re-evaluation: 12:39 a.m.: Patient will not allow me to examine his left shoulder. I reviewed his x-ray showing AC separation. He would not allow me to touch him. I am unable to assess whether this is open or closed. He denies acute trauma to this area. Regarding the patient's left ankle, have observed him ambulating on it. Soft tissue swelling is noted and there is no signs of erythema however he will not allow me to palpate the area. I am unable to assess vascular patency and compartments. He has no evidence of fracture on x-ray. Plan will be discharge to the [facility]. (Mac Clemente) - Depart Disposition: Law Enforcement/Court/[facility] Clinical Impression: Separation of left acromioclavicular joint Qualifiers: Encounter type: initial encounter Qualified Code(s): S43.102A - Unspecified dislocation of left acromioclavicular joint, initial encounter Left ankle sprain Qualifiers: Encounter type: initial encounter Involved ligament of ankle: unspecified ligament Qualified Code(s): S93.402A - Sprain of unspecified ligament of left ankle, initial encounter Condition: Good Instructions: Acromioclavicular Separation (ED), Ankle Sprain (ED) Additional Instructions: Return to the ER immediately if you experience discoloration, have worsening pain, numbness, tingling, or any other symptoms that concern you. If you received x-rays in the emergency department today, be advised, that ligamentous , tendon, muscular, and other non-bony injury cannot be fully ruled out. Try to keep your affected extremity elevated above the level of your chest, and keep cold packs on the affected area, for the next 48 hours. Patient medically cleared for [facility] You have been medically screened for incarceration. You are medically screened for incarceration. Referrals: Samy Rhodes MD [Medical Doctor] - 2-3 days, call for appt.
== END 2018-10-05 00:53 ==
DX: R45.6 Violent behavior (principal); S43.102A Unspecified dislocation of left acromioclavicular joint, initial encounter; S93.402A Sprain of unspecified ligament of left ankle, initial encounter
CPT/HCPCS: L4386

== ENCOUNTER 2018-10-08 15:57 | Emergency (ER) | payer MEDICAID ==
[2018-10-08] MEDS ORDERED: ONDANSETRON 4 MG/2 ML VIAL IVP ONE (16:11)
--- NOTE | 2018-10-08 16:27 | EDPHY ---
H & P Stated Complaint: ETOH Time Seen by Provider: 10/08/18 16:27 HPI/ROS: HPI CHIEF COMPLAINT: Alcohol Intoxication HISTORY OF PRESENT ILLNESS: 37-year-old male, states that he is homeless however states he was "partying real hard today" States that he drank a large amount of from today and vodka. He called 911 from the [employer] was transported here to the emergency room. He was vomiting prior to arrival. He reports a large amount of alcohol tonight. Denies drugs. He arrives highly intoxicated to the emergency room. Denies any other specific complaints. Past Medical History: Denies Past Surgical History: Denies Social History: Large amount of alcohol. Family History: Noncontributory ROS REVIEW OF SYSTEMS: 10 Systems were reviewed and negative with the exception of the elements mentioned in the history of present illness. Exam Constitutional Intoxicated, triage nursing summary reviewed, vital signs reviewed, Sleepy, smells of alcohol Eyes normal conjunctivae and sclera, horizontal beating nystagmus consistent acute alcohol intoxication, otherwise pupils equal and react to light HENT normal inspection, atraumatic, moist mucus membranes, no epistaxis, neck supple/ no meningismus, no raccoon eyes. Respiratory clear to auscultation bilaterally, normal breath sounds, no respiratory distress, no wheezing. Cardiovascular rate normal, regular rhythm, no murmur, no edema, distal pulses normal. Gastrointestinal soft, non-tender, no rebound, no guarding, normal bowel sounds, no distension, no pulsatile mass. Genitourinary no CVA tenderness. Musculoskeletal no midline vertebral tenderness, full range of motion, no calf swelling, no tenderness of extremities, no meningismus, good pulses, neurovascularly intact. Skin pink, warm, & dry, no rash, skin atraumatic. Neurologic sleepy, intoxicated with alcohol,, alert and oriented x 3, AAOx3, moves all 4 extremities equally, motor intact, sensory intact, CN II-XII intact , , normal vision, normal speech. Psychiatric normal mood/affect. Heme/Lymph/Immune no lymphadenopathy. Differential Diagnosis: Includes but is not limited to in a particular order acute alcohol intoxication, alcohol abuse, dehydration, electrolyte abnormality , nausea vomiting from acute alcohol intoxication Medical Decision Making: Plan for this patient IV establishment with IV fluid bolus, IV Zofran 4 mg, basic electrolytes and serum alcohol level. Re-evaluation: Alcohol level 155. 1750: Patient re-evaluated this time. He is clinically sober he ambulates well throughout the emergency room. He is asking to be discharged. His serum alcohol level was noted be 155. Blood glucose normal. Given that the patient is clinically sober ambulatory answers questions appropriately, is requesting be discharged I did offer him to go to detox center her refused this. He refused to stay further in the emergency room and left on his own accord. Source: Patient, EMS - Personal History Tetanus Vaccine Date: 2016 - Medical/Surgical History Hx Asthma: No Hx Chronic Respiratory Disease: No Hx Diabetes: No Hx Cardiac Disease: No Hx Renal Disease: No Hx Cirrhosis: No Hx Alcoholism: No Hx HIV/AIDS: No Hx Splenectomy or Spleen Trauma: No Other PMH: anxiety, ptsd, depression, bipolar, heroin use - Social History Smoking Status: Current every day smoker Constitutional: Initial Vital Signs Temperature (C) 36.4 C 10/08/18 16:07 Heart Rate 72 10/08/18 16:07 Respiratory Rate 16 10/08/18 16:07 Blood Pressure 100/82 H 10/08/18 16:07 O2 Sat (%) 97 10/08/18 16:07 O2 Delivery Mode Room Air Allergies/Adverse Reactions: Penicillins Allergy (Unknown, Verified 06/21/18 20:18) Home Medications: Medication Instructions Recorded NK [No Known Home Meds] 10/08/18 Medical Decision Making - Data Points Laboratory Results: Laboratory Results 10/08/18 17:10 10/08/18 17:10 10/08/18 10/08/18 17:10 17:10 WBC 12.27 10^3/uL H 10^3/uL (3.80-9.50) RBC 5.36 10^6/uL 10^6/uL (4.40-6.38) Hgb 16.6 g/dL g/dL (13.7-17.5) Hct 50.1 % % (40.0-51.0) MCV 93.5 fL fL (81.5-99.8) MCH 31.0 pg pg (27.9-34.1) MCHC 33.1 g/dL g/dL (32.4-36.7) RDW 12.3 % % (11.5-15.2) Plt Count 382 10^3/uL 10^3/uL (150-400) MPV 9.3 fL fL (8.7-11.7) Neut % (Auto) 80.4 % H % (39.3-74.2) Lymph % (Auto) 13.9 % L % (15.0-45.0) [place] % (Auto) 3.6 % L % (4.5-13.0) Eos % (Auto) 1.5 % % (0.6-7.6) Baso % (Auto) 0.3 % % (0.3-1.7) Nucleat RBC Rel Count 0.0 % % (0.0-0.2) Absolute Neuts (auto) 9.87 10^3/uL H 10^3/uL (1.70-6.50) Absolute Lymphs (auto) 1.70 10^3/uL 10^3/uL (1.00-3.00) Absolute Monos (auto) 0.44 10^3/uL 10^3/uL (0.30-0.80) Absolute Eos (auto) 0.18 10^3/uL 10^3/uL (0.03-0.40) Absolute Basos (auto) 0.04 10^3/uL 10^3/uL (0.02-0.10) Absolute Nucleated RBC 0.00 10^3/uL 10^3/uL (0-0.01) Immature Gran % 0.3 % % (0.0-1.1) Immature Gran # 0.04 10^3/uL 10^3/uL (0.00-0.10) Sodium 140 mEq/L mEq/L (135-145) Potassium 4.3 mEq/L mEq/L (3.5-5.2) Chloride 104 mEq/L mEq/L (97-110) Carbon Dioxide 27 mEq/l mEq/l (22-31) Anion Gap 9 mEq/L mEq/L (6-14) BUN 14 mg/dL mg/dL (7-23) Creatinine 0.9 mg/dL mg/dL (0.7-1.3) Estimated GFR > 60 Glucose 118 mg/dL H mg/dL (70-100) Calcium 9.3 mg/dL mg/dL (8.5-10.4) Ethyl Alcohol 155 mg/dL H mg/dL (0-10) Medications Given: Discontinued Medications Sodium Chloride (Ns) 1,000 mls @ 0 mls/hr IV EDNOW ONE; Wide Open PRN Reason: Protocol Stop: 10/08/18 16:32 Last Admin: 10/08/18 16:40 Dose: 1,000 mls Ondansetron HCl (Zofran) 4 mg IVP EDNOW ONE Stop: 10/08/18 16:12 Last Admin: 10/08/18 16:13 Dose: 4 mg Departure - Departure Disposition: Home, Routine, Self-Care Clinical Impression: Alcoholic intoxication Qualifiers: Complication of substance-induced condition: uncomplicated Qualified Code(s): F10.920 - Alcohol use, unspecified with intoxication, uncomplicated Condition: Good Instructions: Alcohol Intoxication (ED) Referrals: NONE *PRIMARY CARE P,. [Primary Care Provider] - As per Instructions
[2018-10-08] MEDS ORDERED: NS 1,000 ML IV ONE (16:31)
[2018-10-08 17:24] LABS: PLATELET COUNT 382 10^3/uL (150-400)
[2018-10-08] MEDS ORDERED: CHLORDIAZEPOXIDE 25MG PREPK#6 BTL TAKEHOME ONE ×2 (17:53→17:54)
[2018-10-08 18:03] VITALS: BP 144/75
== END 2018-10-08 18:03 | disposition home or self-care (01) ==
LOC: EDUNIT#
DX: F10.920 Alcohol use, unspecified with intoxication, uncomplicated (principal); E86.9 Volume depletion, unspecified
CPT/HCPCS: 96374; G0480; J2405